=== PATIENT | female | born 1960 | race Caucasian/White ===

== ENCOUNTER 2018-07-07 00:42 | Outpatient (CLI) | payer MEDICARE | END 2018-07-07 00:43 | disposition critical access hospital (66) | LOC: EMS 00:42 | PROVIDERS: ATTEND Surgery | DX: R41.82 Altered mental status, unspecified (principal); G35 Multiple sclerosis; R56.9 Unspecified convulsions | CPT/HCPCS: A0425; A0429 ==

== ENCOUNTER 2018-07-07 01:15 | Emergency (ER) | payer MEDICARE ==
[2018-07-07] MEDS ORDERED: levETIRAcetam INJ 500 MG in SODIUM CHLORIDE 0.9% 100ML 100 ML IV STA (01:22)
[2018-07-07] MEDS ORDERED: LORazepam 2 MG/ML VIAL IVP STA (01:22)
[2018-07-07] MEDS ORDERED: SODIUM CHLORIDE 0.9% 1,000 ML IV ONE (01:22)
[2018-07-07 01:35] LABS: BASOPHILS % (AUTO) 0.6 %; EOSINOPHILS % (AUTO) 0.2 %; HGB - HEMOGLOBIN 13.3 g/dL (12.0-16.0); LYMPHOCYTES # (AUTO) 0.3 10^3/uL (1.5-3.5); LYMPHOCYTES % (AUTO) 7.2 %; MEAN CORPUSCULAR HEMOGLOBIN 32.5 pg (27.0-31.0); MEAN CORPUSCULAR HGB CONC 35.4 g/dL (32.0-36.0); MEAN CORPUSCULAR VOLUME 91.7 fL (81.0-99.0); MEAN PLATELET VOLUME 8.5 fL (7.9-10.8); MONOCYTES # (AUTO) 0.2 10^3/uL (0.0-1.0); MONOCYTES % (AUTO) 3.7 %; NEUTROPHILS # (AUTO) 4.2 10^3/uL (1.5-6.6); NEUTROPHILS % (AUTO) 88.3 %; PLT - PLATELET COUNT 192 10^3/uL (130-450); RED CELL DISTRIBUTION WIDTH 13.8 % (12.0-15.0); WHITE BLOOD COUNT 4.8 x10^3/uL (4.8-10.8)
[2018-07-07 01:41] LABS: ALBUMIN 4.3 g/dL (3.2-5.5); ALBUMIN/GLOBULIN RATIO 1.3 (1.0-2.2); ALKALINE PHOSPHATASE 79 IU/L (42-121); ALT ALANINE AMINOTRANSFERASE < 10 IU/L (10-60); AST ASPARTATE AMINOTRANSFERASE 17 IU/L (10-42); BILIRUBIN,TOTAL 0.8 mg/dL (0.2-1.0); BUN - BLOOD UREA NITROGEN 15 mg/dL (6-20); CALCIUM 9.5 mg/dL (8.5-10.3); CARBON DIOXIDE - CO2 25 mmol/L (21-32); CHLORIDE 99 mmol/L (101-111); CREATININE 0.9 mg/dL (0.4-1.0); GFR - MDRD 64 (>89); GLUCOSE 105 mg/dL (70-100); LIPASE 41 U/L (22-51); SODIUM 132 mmol/L (135-145); TOTAL PROTEIN 7.7 g/dL (6.7-8.2)
--- NOTE | 2018-07-07 01:42 | ED Physician Documentation ---
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 No: Fell, Head injury Associated symptoms: Other (her partner says she had been feeling okay the past 4 days, without fever, vomiting, URI symptoms.). No: Headache, Chest pain History of seizures: Known seizure disorder (has had 3 prior seizures, with eval and workup by Neurology. Is on AED meds.) Contributing factors: No: Off meds, Low blood sugar, Head injury, Substance abuse, EtOH withdrawal, Fever Similar symptoms before: Diagnosis (seizures in the past 6 months. Has h/o MS but friends says the Neurologist did not think it was MS seizures.) Recently seen: Not recently seen Review of Systems Unable to obtain: Confused (still post ictal confused, but alert and awake. Info from her friend.) Constitutional: denies: Fever Nose: denies: Rhinorrhea / runny nose, Congestion Throat: denies: Sore throat Respiratory: denies: Cough GI: denies: Vomiting, Diarrhea Neurologic: denies: Altered mental status, Headache, Head injury PD PAST MEDICAL HISTORY - Past Medical History Cardiovascular: Hypertension Neuro: Seizure disorder, Multiple sclerosis Psych: None - Present Medications Home Medications: Ambulatory Orders Medication Instructions Recorded Confirmed Propanolol 07/07/18 RX: ALPRAZolam [Alprazolam] 07/07/18 RX: Baclofen 07/07/18 RX: Gabapentin 07/07/18 RX: Levetiracetam [Keppra] 07/07/18 RX: Levothyroxine [Synthroid] 07/07/18 Rizatriptan Benzoate [Rizatriptan] 07/07/18 - Allergies Allergies/Adverse Reactions: Allergies Allergy/AdvReac Type Severity Reaction Status Date / Time No Known Drug Allergies Allergy Verified 07/07/18 01:24 - Living Situation Living Situation: reports: With spouse/s.o., Other (visiting locally the past month; live in another state. ) Living Arrangement: reports: At home PD ED PE NORMAL - Vitals Vital signs reviewed: Yes - General General: No acute distress, Well developed/nourished, Other (awake and alert though oriented to just person. 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, No motor deficit, No sensory deficit, Normal speech Eye Opening: Spontaneous Motor: Obeys Commands Verbal: Oriented GCS Score: 15 Results - Vitals Vitals: Vital Signs - 24 hr 07/07/18 07/07/18 07/07/18 01:14 01:24 03:17 Temperature 36.8 C Heart Rate 98 90 90 Respiratory 15 13 12 Rate Blood Pressure 150/121 H 131/70 H 136/91 H O2 Saturation 100 98 100 07/07/18 03:48 Temperature Heart Rate 92 Respiratory 18 Rate Blood Pressure 110/68 O2 Saturation 100 Oxygen O2 Source Room air - Labs Labs: Laboratory Tests 07/07/18 07/07/18 07/07/18 01:20 01:20 03:10 WBC 4.8 RBC 4.10 L Hgb 13.3 Hct 37.6 MCV 91.7 MCH 32.5 H MCHC 35.4 RDW 13.8 Plt Count 192 MPV 8.5 Neut # (Auto) 4.2 Lymph # (Auto) 0.3 L [place] # (Auto) 0.2 Eos # (Auto) 0.0 Baso # (Auto) 0.0 Absolute Nucleated RBC 0.00 Nucleated RBC % 0.0 Sodium 132 L Potassium 3.9 Chloride 99 L Carbon Dioxide 25 Anion Gap 8.0 BUN 15 Creatinine 0.9 Estimated GFR (MDRD) 64 L Glucose 105 H Calcium 9.5 Total Bilirubin 0.8 AST 17 ALT < 10 L Alkaline Phosphatase 79 Total Protein 7.7 Albumin 4.3 Globulin 3.4 Albumin/Globulin Ratio 1.3 Lipase 41 Urine Color YELLOW Urine Clarity CLEAR Urine pH 6.5 Ur Specific Sophia 1.015 Urine Protein NEGATIVE Urine Glucose (UA) NEGATIVE Urine Ketones NEGATIVE Urine Occult Blood NEGATIVE Urine Nitrite NEGATIVE Urine Bilirubin NEGATIVE Urine Urobilinogen 0.2 (NORMAL) Ur Leukocyte Esterase TRACE H Urine RBC 0-5 Urine WBC 0-3 Ur Squamous Epith Cells RARE Squamous Urine Bacteria None Seen Ur Microscopic Review INDICATED Urine Culture Comments INDICATED PD MEDICAL DECISION MAKING - ED course Complexity details: considered differential (more alert and aware, post-ictal improves. No problems. ), d/w patient Departure - Departure Disposition: 01 Home, Self Care Clinical Impression: Seizure disorder, Generalized seizure Condition: Stable Record reviewed to determine appropriate education?: Yes Instructions: ED Seizure Recurrent Comments: The basic blood tests and urine tests are normal. No signs of infection. Continue usual medications and stay well-hydrated. Discharge Date/Time: 07/07/18 04:18
[2018-07-07 03:19] LABS: BILIRUBIN,URINE NEGATIVE (NEGATIVE); GLUCOSE, URINE (UA) NEGATIVE (NEGATIVE); KETONES,URINE (UA) NEGATIVE (NEGATIVE); LEUKOCYTE ESTERASE, URINE TRACE (NEGATIVE); NITRITE,URINE NEGATIVE (NEGATIVE); OCCULT BLOOD,URINE NEGATIVE (NEGATIVE); PH,URINE 6.5 PH (5.0-7.5); PROTEIN,URINE NEGATIVE (NEGATIVE); UROBILINOGEN,URINE 0.2 (NORMAL) E.U./dL (NORMAL)
[2018-07-07 03:21] LABS: CLARITY,URINE CLEAR (CLEAR)
[2018-07-07 03:26] LABS: BACTERIA,URINE None Seen /HPF (None Seen); RBC,URINE 0-5 /HPF (0-5); SQUAMOUS EPITHELIAL CELL,UR RARE Squamous (<= Few)
[2018-07-07 03:49] VITALS: BP 110/68
== END 2018-07-07 04:18 | disposition home or self-care (01) ==
LOC: ED 01:15
DX: G40.909 Epilepsy, unspecified, not intractable, without status epilepticus (principal); G35 Multiple sclerosis; I10 Essential (primary) hypertension
CPT/HCPCS: 36415; 80053; 81001; 83690; 85025; 87086; 96361; 96365; 96375; 99283; 99284; J2060; 81003